=== PATIENT | female | born 1970 | race African-American/Black ===

== ENCOUNTER 2020-01-05 08:15 | Emergency (ER) | payer OTHER ==
[~2020-01-05] VITALS: Ht 154.9 cm; Wt 51.3 kg
--- NOTE | 2020-01-05 08:26 | NUR ---
ED Nurse Note: pt into room wearing her own mask
[2020-01-05 08:27] VITALS: BP 118/81
--- NOTE | 2020-01-05 08:29 | NUR ---
ED Nurse Note: pt with c/o as noted in triage. md salazar of pt.
[2020-01-05] MEDS ORDERED: Tetanus/Diptheria/Pertussis IM ONE (08:30)
[2020-01-05] MEDS ORDERED: HYDROcodone/Acetamin 5/325 tab ORAL ONE (08:30)
[2020-01-05] MEDS ORDERED: Ketorolac 30mg Inj IM ONE (08:30)
[2020-01-05] MEDS ORDERED: IBUPROFEN600 M1 ORAL (08:34)
[2020-01-05] MEDS ORDERED: TYLENOL325 MG ORAL (08:34)
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
[2020-01-05 09:50] VITALS: BP 118/81
--- NOTE | 2020-01-05 09:50 | NUR ---
ER DISCHARGE NOTE: Patient is cleared to be discharged per ERMD, pt is aox4, on room air, with stable vital signs. pt was given dc and prescription instructions, pt was able to verbalize understanding, pt is able to ambulate with steady gait. pt took all belongings.
--- NOTE | 2020-01-05 09:57 | NUR ---
Per ER doc long arm posterior splint has been applied to pts left arm
--- NOTE | 2020-01-05 10:46 | Diagnostic Imaging Report ---
Indications: Trauma, pain Technique: Two views of the left forearm Comparison: None Findings: There is a comminuted minimally displaced fracture of the distal ulnar shaft. No definite associated radial fracture. No radiopaque foreign Impression: Positive for ulnar fracture Findings discussed by phone with Dr. Alfonso at the time of interpretation
== END 2020-01-05 10:03 | disposition home or self-care (01) ==
LOC: EDBD 08:39 → EMR 08:39
DX: S52.202A Unspecified fracture of shaft of left ulna, initial encounter for closed fracture (principal); W22.8XXA Striking against or struck by other objects, initial encounter; Y92.9 Unspecified place or not applicable; F17.200 Nicotine dependence, unspecified, uncomplicated; Z23 Encounter for immunization
CPT/HCPCS: 29105; 73090; 90471; 90715; J1885; Z7502; 99283